=== PATIENT | male | born 1940 | race Caucasian/White ===

== ENCOUNTER 2021-06-12 16:09 | Emergency (ER) | payer OTHER, MEDICARE ==
[~2021-06-12] VITALS: Ht 175.3 cm; Wt 101.4 kg
[2021-06-12] MEDS ORDERED: albuterol 2.5 MG/3 ML nebule NEB ONE (19:20)
[2021-06-12 19:59] VITALS: BP 145/74
== END 2021-06-12 20:01 | disposition home or self-care (01) ==
LOC: ER 16:10
DX: R06.02 Shortness of breath (principal); R18.8 Other ascites; R14.0 Abdominal distension (gaseous); F17.200 Nicotine dependence, unspecified, uncomplicated
CPT/HCPCS: 94640; 94760; 99284

== ENCOUNTER 2021-07-03 07:50 | Day surgery (SDC) | payer OTHER ==
[~2021-07-03] VITALS: Ht 175.3 cm; Wt 91.7 kg
[~2021-07-03 07:50] MED LIST: AMLO5TAB PO; EMPA10TA PO; FERR-39 PO; FURO-149 PO; GABA300C PO; INSU100I25 SQ; METF-900 PO; METO-395 PO; SENN-263 PO; SPIR25TA5 PO; ZAR2.5T PO
[2021-07-03] MEDS ORDERED: LIDOcaine 1%/PF 5ML 10 MG/ML VIAL SQ ONE (08:00)
[2021-07-03] MEDS ORDERED: albumin 25% 100mL bottle x 1 IV PRN (08:10)
[2021-07-03 08:24] VITALS: BP 141/69
[2021-07-03 08:30] VITALS: BP 141/69
[2021-07-03 08:45] VITALS: BP 129/68
[2021-07-03 08:59] VITALS: BP 120/49
[2021-07-03 09:15] VITALS: BP 115/47
[2021-07-03 09:30] VITALS: BP 119/48
--- NOTE | 2021-07-03 09:35 | NUR ---
contacted stroke alert called
== END 2021-07-03 09:50 | disposition home or self-care (01) ==
LOC: SSTAY O 07:50
PROVIDERS: ATTEND Radiology Vascular & Interventional Radiology
DX: R18.8 Other ascites (principal); R14.0 Abdominal distension (gaseous); K74.60 Unspecified cirrhosis of liver; J44.9 Chronic obstructive pulmonary disease, unspecified; E11.22 Type 2 diabetes mellitus with diabetic chronic kidney disease; N18.4 Chronic kidney disease, stage 4 (severe); K72.90 Hepatic failure, unspecified without coma; E66.01 Morbid (severe) obesity due to excess calories; Z68.29 Body mass index [BMI] 29.0-29.9, adult; Z95.2 Presence of prosthetic heart valve; Z95.0 Presence of cardiac pacemaker; F17.290 Nicotine dependence, other tobacco product, uncomplicated; Z72.89 Other problems related to lifestyle; Z79.4 Long term (current) use of insulin; Z79.899 Other long term (current) drug therapy
CPT/HCPCS: 49083; J3490; P9047

== ENCOUNTER 2021-07-13 06:50 | Day surgery (SDC) | payer OTHER ==
[2021-07-13] VITALS (10 sets, daily range): BP systolic 126–139; BP diastolic 53–62
[~2021-07-13] VITALS: Ht 175.3 cm; Wt 87.7 kg
[2021-07-13] MEDS ORDERED: LIDOcaine 1%/PF 5ML 10 MG/ML VIAL SQ ONE (07:05)
[2021-07-13] MEDS ORDERED: albumin 25% 100mL bottle x 1 IV PRN (07:40)
== END 2021-07-13 11:11 | disposition home or self-care (01) ==
LOC: SSTAY O 06:50
PROVIDERS: ATTEND Radiology Vascular & Interventional Radiology
DX: R18.8 Other ascites (principal); E11.22 Type 2 diabetes mellitus with diabetic chronic kidney disease; N18.4 Chronic kidney disease, stage 4 (severe); J44.9 Chronic obstructive pulmonary disease, unspecified; E66.01 Morbid (severe) obesity due to excess calories; Z68.28 Body mass index [BMI] 28.0-28.9, adult; Z95.0 Presence of cardiac pacemaker; Z95.2 Presence of prosthetic heart valve; F17.290 Nicotine dependence, other tobacco product, uncomplicated; Z72.89 Other problems related to lifestyle; Z79.899 Other long term (current) drug therapy
CPT/HCPCS: 49083; J3490; P9047

== ENCOUNTER 2021-07-20 07:47 | Day surgery (SDC) | payer OTHER ==
[~2021-07-20] VITALS: Ht 175.3 cm; Wt 83.0 kg
[2021-07-20] VITALS (8 sets, daily range): BP systolic 115–145; BP diastolic 55–65
[~2021-07-20 07:47] MED LIST changes: -INSU100I25 SQ; -METF-900 PO; -SENN-263 PO
[2021-07-20] MEDS ORDERED: albumin 25% 100mL bottle x 1 IV PRN (08:05)
[2021-07-20] MEDS ORDERED: INSULIN ASPART SQ (08:37)
[2021-07-20] MEDS ORDERED: ALOG25TA2 PO (08:37)
[2021-07-20] MEDS ORDERED: POTA20PA40 PO (08:37)
[2021-07-20] MEDS ORDERED: RENAL MULTIVITAMIN PO (08:37)
[2021-07-20] MEDS ORDERED: LIDOcaine 1%/PF 5ML 10 MG/ML VIAL SQ ONE (08:45)
== END 2021-07-20 11:25 | disposition home or self-care (01) ==
LOC: SSTAY O 07:47
PROVIDERS: ATTEND Radiology Diagnostic Radiology
DX: R18.8 Other ascites (principal); J44.9 Chronic obstructive pulmonary disease, unspecified; E11.22 Type 2 diabetes mellitus with diabetic chronic kidney disease; N18.4 Chronic kidney disease, stage 4 (severe); Z95.0 Presence of cardiac pacemaker; Z95.2 Presence of prosthetic heart valve; E66.01 Morbid (severe) obesity due to excess calories; Z68.27 Body mass index [BMI] 27.0-27.9, adult; Z72.89 Other problems related to lifestyle; Z79.899 Other long term (current) drug therapy
CPT/HCPCS: 49083; J3490

== ENCOUNTER 2021-08-02 08:03 | Day surgery (SDC) | payer OTHER ==
[~2021-08-02] VITALS: Ht 175.3 cm; Wt 86.4 kg
[~2021-08-02 08:03] MED LIST changes: +ALOG25TA2 PO; -GABA300C PO; +INSULIN ASPART SQ; +POTA20PA40 PO; +RENAL MULTIVITAMIN PO
[2021-08-02 08:30] VITALS: BP 129/72
[2021-08-02] MEDS ORDERED: LIDOcaine 1%/PF 5ML 10 MG/ML VIAL SQ ONE (08:30)
[2021-08-02] MEDS ORDERED: albumin 25% 100mL bottle x 1 IV PRN (08:35)
[2021-08-02 09:20] VITALS: BP 118/65
[2021-08-02 09:35] VITALS: BP 137/55
[2021-08-02 09:50] VITALS: BP 133/58
[2021-08-02 10:05] VITALS: BP 131/54
== END 2021-08-02 10:15 | disposition home or self-care (01) ==
LOC: SSTAY O 08:03
PROVIDERS: ATTEND Radiology Vascular & Interventional Radiology
DX: R18.8 Other ascites (principal); R14.0 Abdominal distension (gaseous); J44.9 Chronic obstructive pulmonary disease, unspecified; E11.22 Type 2 diabetes mellitus with diabetic chronic kidney disease; N18.4 Chronic kidney disease, stage 4 (severe); K29.70 Gastritis, unspecified, without bleeding; E66.01 Morbid (severe) obesity due to excess calories; Z68.28 Body mass index [BMI] 28.0-28.9, adult; Z95.2 Presence of prosthetic heart valve; Z95.0 Presence of cardiac pacemaker; Z72.89 Other problems related to lifestyle; F17.290 Nicotine dependence, other tobacco product, uncomplicated; Z79.899 Other long term (current) drug therapy
CPT/HCPCS: 49083; J3490; Z7610; A6258

== ENCOUNTER 2021-08-13 06:34 | Day surgery (SDC) | payer OTHER ==
[2021-08-13] VITALS (7 sets, daily range): BP systolic 115–140; BP diastolic 58–67
[~2021-08-13] VITALS: Ht 175.3 cm; Wt 88.7 kg
[2021-08-13] MEDS ORDERED: albumin 25% 100mL bottle x 1 IV PRN (06:55)
[2021-08-13] MEDS ORDERED: LIDOcaine 1% 30ml preserv. free vial SQ STA (07:11)
== END 2021-08-13 10:15 | disposition home or self-care (01) ==
LOC: SSTAY O 06:34
PROVIDERS: ATTEND Radiology Diagnostic Radiology
DX: R18.8 Other ascites (principal); R14.0 Abdominal distension (gaseous); K74.60 Unspecified cirrhosis of liver; J44.9 Chronic obstructive pulmonary disease, unspecified; E66.01 Morbid (severe) obesity due to excess calories; Z68.28 Body mass index [BMI] 28.0-28.9, adult; E11.22 Type 2 diabetes mellitus with diabetic chronic kidney disease; N18.4 Chronic kidney disease, stage 4 (severe); Z95.0 Presence of cardiac pacemaker; Z95.2 Presence of prosthetic heart valve; Z79.4 Long term (current) use of insulin; Z79.899 Other long term (current) drug therapy; F17.290 Nicotine dependence, other tobacco product, uncomplicated; Z72.89 Other problems related to lifestyle
CPT/HCPCS: 49083; P9047; Z7610; A6258

== ENCOUNTER 2021-08-21 07:38 | Day surgery (SDC) | payer OTHER ==
[~2021-08-21] VITALS: Ht 175.3 cm; Wt 89.0 kg
[2021-08-21] MEDS ORDERED: LIDOcaine 1%/PF 5ML 10 MG/ML VIAL SQ ONE (07:45)
[2021-08-21] MEDS ORDERED: albumin 25% 100mL bottle x 1 IV PRN (08:05)
[2021-08-21 08:30] VITALS: BP 139/62
[2021-08-21 08:58] VITALS: BP 129/49
[2021-08-21 09:13] VITALS: BP 109/52
[2021-08-21 09:28] VITALS: BP 108/53
[2021-08-21 09:43] VITALS: BP 118/43
[2021-08-21 09:58] VITALS: BP 112/51
== END 2021-08-21 10:05 | disposition home or self-care (01) ==
LOC: SSTAY O 07:38
PROVIDERS: ATTEND Radiology Diagnostic Radiology
DX: R18.8 Other ascites (principal); R14.0 Abdominal distension (gaseous); J44.9 Chronic obstructive pulmonary disease, unspecified; E11.22 Type 2 diabetes mellitus with diabetic chronic kidney disease; N18.4 Chronic kidney disease, stage 4 (severe); K72.90 Hepatic failure, unspecified without coma; E66.01 Morbid (severe) obesity due to excess calories; Z68.29 Body mass index [BMI] 29.0-29.9, adult; Z95.2 Presence of prosthetic heart valve; Z95.0 Presence of cardiac pacemaker; F17.290 Nicotine dependence, other tobacco product, uncomplicated; Z72.89 Other problems related to lifestyle; Z79.4 Long term (current) use of insulin; Z79.899 Other long term (current) drug therapy
CPT/HCPCS: 49083; J3490; P9047; Z7610; A6258; A6449

== ENCOUNTER 2021-08-29 06:27 | Day surgery (SDC) | payer OTHER ==
[~2021-08-29] VITALS: Ht 175.3 cm; Wt 91.0 kg
[2021-08-29] VITALS (8 sets, daily range): BP systolic 126–147; BP diastolic 52–77
[~2021-08-29 06:27] MED LIST changes: -EMPA10TA PO
[2021-08-29] MEDS ORDERED: albumin 25% 100mL bottle x 1 IV PRN (07:00)
[2021-08-29] MEDS ORDERED: LIDOcaine 1%/PF 5ML 10 MG/ML VIAL SQ ONE (07:05)
== END 2021-08-29 10:30 | disposition home or self-care (01) ==
LOC: SSTAY O 06:27
PROVIDERS: ATTEND Radiology Vascular & Interventional Radiology
DX: R18.8 Other ascites (principal); K74.60 Unspecified cirrhosis of liver; E11.22 Type 2 diabetes mellitus with diabetic chronic kidney disease; N18.4 Chronic kidney disease, stage 4 (severe); J44.9 Chronic obstructive pulmonary disease, unspecified; E66.01 Morbid (severe) obesity due to excess calories; Z68.29 Body mass index [BMI] 29.0-29.9, adult; Z95.0 Presence of cardiac pacemaker; Z95.2 Presence of prosthetic heart valve; Z72.89 Other problems related to lifestyle; F17.290 Nicotine dependence, other tobacco product, uncomplicated; Z79.4 Long term (current) use of insulin; Z79.899 Other long term (current) drug therapy
CPT/HCPCS: 49083; J3490; P9047; A6258; A6449

== ENCOUNTER 2021-09-06 07:44 | Day surgery (SDC) | payer OTHER ==
[~2021-09-06] VITALS: Ht 175.3 cm; Wt 90.9 kg
[2021-09-06] VITALS (7 sets, daily range): BP systolic 106–140; BP diastolic 51–75
[2021-09-06] MEDS ORDERED: albumin 25% 100mL bottle x 1 IV PRN (08:00)
[2021-09-06] MEDS ORDERED: INSU100V12 SQ (08:13)
[2021-09-06] MEDS ORDERED: INSU100V37 SQ ×2 (08:13)
[2021-09-06] MEDS ORDERED: ATOR10TA87 PO (08:13)
[2021-09-06] MEDS ORDERED: LIDOcaine 1%/PF 5ML 10 MG/ML VIAL SQ ONE ×2 (08:20→10:30)
== END 2021-09-06 11:55 | disposition home or self-care (01) ==
LOC: SSTAY O 07:44
PROVIDERS: ATTEND Radiology Diagnostic Radiology
DX: R18.8 Other ascites (principal); K74.60 Unspecified cirrhosis of liver; J44.9 Chronic obstructive pulmonary disease, unspecified; E11.22 Type 2 diabetes mellitus with diabetic chronic kidney disease; N18.4 Chronic kidney disease, stage 4 (severe); E66.01 Morbid (severe) obesity due to excess calories; Z95.0 Presence of cardiac pacemaker; Z95.2 Presence of prosthetic heart valve; Z86.19 Personal history of other infectious and parasitic diseases; Z79.899 Other long term (current) drug therapy; Z98.890 Other specified postprocedural states
CPT/HCPCS: 49083; J3490; P9047; Z7610; A6258

== ENCOUNTER 2021-09-20 06:08 | Day surgery (SDC) | payer OTHER ==
[~2021-09-20] VITALS: Ht 175.3 cm; Wt 88.9 kg
[2021-09-20] VITALS (7 sets, daily range): BP systolic 106–135; BP diastolic 53–79
[~2021-09-20 06:08] MED LIST changes: +ATOR10TA87 PO; +INSU100V37 SQ; -INSULIN ASPART SQ
[2021-09-20] MEDS: LIDOcaine 1%/PF 5ML 10 MG/ML VIAL IJ ONE (08:42)
[2021-09-20] MEDS: albumin 25% 100mL bottle x 1 IV PRN (08:42)
== END 2021-09-20 09:50 | disposition home or self-care (01) ==
LOC: SSTAY O 06:08
PROVIDERS: ATTEND Radiology Vascular & Interventional Radiology
DX: R18.8 Other ascites (principal); K74.60 Unspecified cirrhosis of liver; J44.9 Chronic obstructive pulmonary disease, unspecified; E66.01 Morbid (severe) obesity due to excess calories; E11.22 Type 2 diabetes mellitus with diabetic chronic kidney disease; F17.210 Nicotine dependence, cigarettes, uncomplicated; N18.4 Chronic kidney disease, stage 4 (severe); Z95.0 Presence of cardiac pacemaker; Z95.4 Presence of other heart-valve replacement; Z79.4 Long term (current) use of insulin; Z79.899 Other long term (current) drug therapy; Z98.890 Other specified postprocedural states
CPT/HCPCS: 49083; J3490; P9047; A6258

== ENCOUNTER 2021-10-02 06:10 | Day surgery (SDC) | payer OTHER ==
[2021-10-02] VITALS (7 sets, daily range): BP systolic 123–147; BP diastolic 43–64
[~2021-10-02] VITALS: Ht 175.3 cm; Wt 91.8 kg
[2021-10-02] MEDS ORDERED: albumin 25% 100mL bottle x 1 IV PRN (06:55)
[2021-10-02] MEDS ORDERED: INSU100I25 SQ (07:06)
[2021-10-02] MEDS ORDERED: EMPA25TA PO (07:06)
[2021-10-02] MEDS ORDERED: PRED20TA PO (07:06)
[2021-10-02] MEDS ORDERED: ALOG12.52 PO (07:06)
[2021-10-02] MEDS ORDERED: LISI20TA28 PO (07:09)
[2021-10-02] MEDS ORDERED: FURO-150 PO (07:10)
[2021-10-02] MEDS ORDERED: ATOR40TA PO (07:11)
[2021-10-02] MEDS ORDERED: [UNRECOGNIZED DRUG - CODE] PO (07:13)
[2021-10-02] MEDS ORDERED: LIDOcaine 1% 30ml preserv. free vial SQ STA (07:45)
== END 2021-10-02 10:05 | disposition home or self-care (01) ==
LOC: SSTAY O 06:10
PROVIDERS: ATTEND Preventive Medicine Aerospace Medicine
DX: R18.8 Other ascites (principal); Z79.899 Other long term (current) drug therapy; Z79.4 Long term (current) use of insulin; Z98.890 Other specified postprocedural states
CPT/HCPCS: 49083; J3490; J7030; P9047; A6258; A6449

== ENCOUNTER 2021-10-12 08:28 | Day surgery (SDC) | payer OTHER ==
[2021-10-12] VITALS (8 sets, daily range): BP systolic 122–135; BP diastolic 52–63
[~2021-10-12] VITALS: Ht 175.3 cm; Wt 89.1 kg
[~2021-10-12 08:28] MED LIST changes: +ALOG12.52 PO; -ALOG25TA2 PO; -ATOR10TA87 PO; +ATOR40TA PO; +EMPA25TA PO; +FURO-150 PO; +INSU100I25 SQ; -INSU100V37 SQ; +LISI20TA28 PO; -POTA20PA40 PO; +PRED20TA PO; +[UNRECOGNIZED DRUG - CODE] PO
[2021-10-12] MEDS ORDERED: albumin 25% 100mL bottle x 1 IV PRN (08:50)
[2021-10-12] MEDS ORDERED: LIDOcaine 1%/PF 5ML 10 MG/ML VIAL SQ ONE (08:55)
== END 2021-10-12 11:40 | disposition home or self-care (01) ==
LOC: SSTAY O 08:28
PROVIDERS: ATTEND Radiology Diagnostic Radiology
DX: R18.8 Other ascites (principal); J44.9 Chronic obstructive pulmonary disease, unspecified; E11.22 Type 2 diabetes mellitus with diabetic chronic kidney disease; Z79.899 Other long term (current) drug therapy; Z79.4 Long term (current) use of insulin; E66.01 Morbid (severe) obesity due to excess calories; N18.4 Chronic kidney disease, stage 4 (severe); Z95.0 Presence of cardiac pacemaker; Z95.4 Presence of other heart-valve replacement; Z98.890 Other specified postprocedural states
CPT/HCPCS: 49083; J3490; P9047; A6258; A6449

== ENCOUNTER 2021-10-19 07:42 | Day surgery (SDC) | payer OTHER ==
[~2021-10-19] VITALS: Ht 175.3 cm; Wt 90.3 kg
[2021-10-19] VITALS (9 sets, daily range): BP systolic 121–157; BP diastolic 51–65
[2021-10-19] MEDS ORDERED: albumin 25% 100mL bottle x 1 IV PRN (08:00)
[2021-10-19] MEDS ORDERED: LIDOcaine 1%/PF 5ML 10 MG/ML VIAL SQ ONE (08:10)
[2021-10-19] MEDS ORDERED: dextrose 50%-water 50ml dispensing syringe IV ONE (08:11)
== END 2021-10-19 11:00 | disposition home or self-care (01) ==
LOC: SSTAY O 07:42
PROVIDERS: ATTEND Preventive Medicine Aerospace Medicine
DX: R18.8 Other ascites (principal); K74.60 Unspecified cirrhosis of liver; J44.9 Chronic obstructive pulmonary disease, unspecified; E11.22 Type 2 diabetes mellitus with diabetic chronic kidney disease; E66.01 Morbid (severe) obesity due to excess calories; N18.4 Chronic kidney disease, stage 4 (severe); Z95.0 Presence of cardiac pacemaker; Z95.4 Presence of other heart-valve replacement; Z79.899 Other long term (current) drug therapy; Z98.890 Other specified postprocedural states
CPT/HCPCS: 49083; 82948; J3490; P9047; A6258; A6449

== ENCOUNTER 2021-10-26 06:56 | Day surgery (SDC) | payer OTHER ==
[2021-10-26] VITALS (9 sets, daily range): BP systolic 117–145; BP diastolic 50–59
[~2021-10-26] VITALS: Ht 175.3 cm; Wt 95.1 kg
[2021-10-26] MEDS ORDERED: albumin 25% 100mL bottle x 1 IV PRN (07:15)
[2021-10-26] MEDS ORDERED: LIDOcaine 1%/PF 5ML 10 MG/ML VIAL SQ ONE (08:20)
== END 2021-10-26 11:00 | disposition home or self-care (01) ==
LOC: SSTAY O 06:56
PROVIDERS: ATTEND Radiology Vascular & Interventional Radiology
DX: R18.8 Other ascites (principal); K74.60 Unspecified cirrhosis of liver; J44.9 Chronic obstructive pulmonary disease, unspecified; E66.01 Morbid (severe) obesity due to excess calories; E11.22 Type 2 diabetes mellitus with diabetic chronic kidney disease; N18.4 Chronic kidney disease, stage 4 (severe); Z95.4 Presence of other heart-valve replacement; Z95.0 Presence of cardiac pacemaker; Z79.899 Other long term (current) drug therapy; Z98.890 Other specified postprocedural states
CPT/HCPCS: 49083; J3490; P9047; A6258; A6449

== ENCOUNTER 2021-11-05 07:59 | Day surgery (SDC) | payer OTHER ==
[~2021-11-05] VITALS: Ht 175.3 cm; Wt 100.5 kg
[2021-11-05] VITALS (9 sets, daily range): BP systolic 104–138; BP diastolic 46–68
[~2021-11-05 07:59] MED LIST changes: -PRED20TA PO
[2021-11-05] MEDS ORDERED: LIDOcaine 1%/PF 5ML 10 MG/ML VIAL SQ ONE (08:10)
[2021-11-05] MEDS: albumin 25% 100mL bottle x 1 IV PRN ×2 (09:03→09:58)
== END 2021-11-05 11:15 | disposition home or self-care (01) ==
LOC: SSTAY O 07:59
PROVIDERS: ATTEND Radiology Diagnostic Radiology
DX: R18.8 Other ascites (principal); K74.60 Unspecified cirrhosis of liver; J44.9 Chronic obstructive pulmonary disease, unspecified; E11.22 Type 2 diabetes mellitus with diabetic chronic kidney disease; N18.4 Chronic kidney disease, stage 4 (severe); E66.01 Morbid (severe) obesity due to excess calories; Z95.0 Presence of cardiac pacemaker; Z95.4 Presence of other heart-valve replacement; Z79.899 Other long term (current) drug therapy
CPT/HCPCS: 49083; J3490; P9047; A6258; A6449

== ENCOUNTER 2021-11-19 07:05 | Day surgery (SDC) | payer OTHER ==
[2021-11-19] VITALS (8 sets, daily range): BP systolic 109–141; BP diastolic 47–64
[~2021-11-19] VITALS: Ht 175.3 cm; Wt 98.5 kg
[~2021-11-19 07:05] MED LIST changes: +LIDOcaine 1% 30ml preserv. free vial SQ STA
[2021-11-19] MEDS: albumin 25% 100mL bottle x 1 IV PRN ×2 (07:29→07:30)
== END 2021-11-19 11:05 | disposition home or self-care (01) ==
LOC: SSTAY O 07:05
PROVIDERS: ATTEND Radiology Vascular & Interventional Radiology
DX: R18.8 Other ascites (principal); K74.60 Unspecified cirrhosis of liver; J44.9 Chronic obstructive pulmonary disease, unspecified; E11.22 Type 2 diabetes mellitus with diabetic chronic kidney disease; N18.4 Chronic kidney disease, stage 4 (severe); Z79.899 Other long term (current) drug therapy; Z98.890 Other specified postprocedural states; E66.01 Morbid (severe) obesity due to excess calories; Z95.0 Presence of cardiac pacemaker
CPT/HCPCS: 49083; J3490; P9047; A6258

== ENCOUNTER 2021-11-26 06:57 | Day surgery (SDC) | payer OTHER ==
[2021-11-26] VITALS (9 sets, daily range): BP systolic 122–140; BP diastolic 48–77
[~2021-11-26] VITALS: Ht 175.3 cm; Wt 100.2 kg
[~2021-11-26 06:57] MED LIST changes: -LIDOcaine 1% 30ml preserv. free vial SQ STA
[2021-11-26] MEDS ORDERED: LIDOcaine 1% 30ml preserv. free vial SQ STA (07:45)
[2021-11-26] MEDS: albumin 25% 100mL bottle x 1 IV PRN ×2 (08:08→08:09)
== END 2021-11-26 10:35 | disposition home or self-care (01) ==
LOC: SSTAY O 06:57
PROVIDERS: ATTEND Radiology Diagnostic Radiology
DX: R18.8 Other ascites (principal); J44.9 Chronic obstructive pulmonary disease, unspecified; E11.22 Type 2 diabetes mellitus with diabetic chronic kidney disease; E66.01 Morbid (severe) obesity due to excess calories; N18.4 Chronic kidney disease, stage 4 (severe); Z79.899 Other long term (current) drug therapy; Z95.0 Presence of cardiac pacemaker; Z98.890 Other specified postprocedural states; Z95.4 Presence of other heart-valve replacement
CPT/HCPCS: 49083; J3490; P9047; A6258

== ENCOUNTER 2021-12-03 07:34 | Day surgery (SDC) | payer OTHER ==
[2021-12-03] VITALS (8 sets, daily range): BP systolic 131–160; BP diastolic 51–64
[~2021-12-03] VITALS: Ht 175.3 cm; Wt 98.0 kg
[~2021-12-03 07:34] MED LIST changes: -FURO-150 PO; -[UNRECOGNIZED DRUG - CODE] PO
[2021-12-03] MEDS: albumin 25% 100mL bottle x 1 IV PRN ×2 (09:21→09:56)
== END 2021-12-03 11:15 | disposition home or self-care (01) ==
LOC: SSTAY O 07:34
PROVIDERS: ATTEND Radiology Vascular & Interventional Radiology
DX: R18.8 Other ascites (principal); J44.9 Chronic obstructive pulmonary disease, unspecified; E11.22 Type 2 diabetes mellitus with diabetic chronic kidney disease; E66.01 Morbid (severe) obesity due to excess calories; Z79.899 Other long term (current) drug therapy; Z95.0 Presence of cardiac pacemaker; Z98.890 Other specified postprocedural states; Z95.4 Presence of other heart-valve replacement
CPT/HCPCS: 49083; P9047; A6258; A6449

== ENCOUNTER 2021-12-10 07:29 | Day surgery (SDC) | payer OTHER ==
[2021-12-10] VITALS (11 sets, daily range): BP systolic 110–147; BP diastolic 47–71
[~2021-12-10] VITALS: Ht 175.3 cm; Wt 97.5 kg
[2021-12-10] MEDS: albumin 25% 100mL bottle x 1 IV PRN ×2 (09:13→09:53)
== END 2021-12-10 10:55 | disposition home or self-care (01) ==
LOC: SSTAY O 07:29
PROVIDERS: ATTEND Radiology Vascular & Interventional Radiology
DX: R18.8 Other ascites (principal); J44.9 Chronic obstructive pulmonary disease, unspecified; E11.22 Type 2 diabetes mellitus with diabetic chronic kidney disease; N18.4 Chronic kidney disease, stage 4 (severe); E66.01 Morbid (severe) obesity due to excess calories; Z95.0 Presence of cardiac pacemaker; Z98.890 Other specified postprocedural states; Z79.899 Other long term (current) drug therapy; Z95.4 Presence of other heart-valve replacement
CPT/HCPCS: 49083; C1729; P9047; A6258; A6449

== ENCOUNTER 2021-12-17 07:29 | Day surgery (SDC) | payer OTHER ==
[2021-12-17] VITALS (8 sets, daily range): BP systolic 119–158; BP diastolic 51–76
[~2021-12-17] VITALS: Ht 175.3 cm; Wt 100.0 kg
[2021-12-17] MEDS: albumin 25% 100mL bottle x 1 IV PRN ×2 (09:23→09:27)
[2021-12-17] MEDS ORDERED: albuterol 2.5 MG/3 ML nebule NEB ONE (09:35)
== END 2021-12-17 11:45 | disposition home or self-care (01) ==
LOC: SSTAY O 07:29
PROVIDERS: ATTEND Radiology Vascular & Interventional Radiology
DX: R18.8 Other ascites (principal); K74.60 Unspecified cirrhosis of liver; J44.9 Chronic obstructive pulmonary disease, unspecified; E11.22 Type 2 diabetes mellitus with diabetic chronic kidney disease; N18.4 Chronic kidney disease, stage 4 (severe); E66.01 Morbid (severe) obesity due to excess calories; Z72.89 Other problems related to lifestyle; Z95.0 Presence of cardiac pacemaker; Z95.4 Presence of other heart-valve replacement
CPT/HCPCS: 49083; 94640; 94760; P9047; A6258; A6449

== ENCOUNTER 2021-12-24 06:57 | Day surgery (SDC) | payer OTHER ==
[2021-12-24] VITALS (8 sets, daily range): BP systolic 110–158; BP diastolic 55–75
[~2021-12-24] VITALS: Ht 175.3 cm; Wt 99.6 kg
[2021-12-24] MEDS ORDERED: LIDOcaine 1% 30ml preserv. free vial SQ STA (07:13)
[2021-12-24] MEDS ORDERED: INSU100I25 SQ (07:18)
--- NOTE | 2021-12-24 08:53 | NUR ---
Patient's blood sugar 39. Notified Ene GOLDBERG Will administer 50% dextrose IV and reassess in 15 minutes. Patient a/o x 4, denies any symptoms.
[2021-12-24] MEDS ORDERED: dextrose 50%-water 50ml dispensing syringe IV ONE (08:54)
[2021-12-24] MEDS: albumin 25% 100mL bottle x 1 IV PRN ×2 (09:07→09:46)
--- NOTE | 2021-12-24 09:10 | NUR ---
Blood glucose 158. Patient a/o x 4 and tolerating PO intake.
--- NOTE | 2021-12-24 10:35 | NUR ---
Blood glucose 100. Notified NATALIE Bartlett.
== END 2021-12-24 10:40 | disposition home or self-care (01) ==
LOC: SSTAY O 06:57
PROVIDERS: ATTEND Radiology Vascular & Interventional Radiology
DX: R18.8 Other ascites (principal); J44.9 Chronic obstructive pulmonary disease, unspecified; E11.22 Type 2 diabetes mellitus with diabetic chronic kidney disease; E66.01 Morbid (severe) obesity due to excess calories; Z95.0 Presence of cardiac pacemaker; Z95.2 Presence of prosthetic heart valve; Z79.899 Other long term (current) drug therapy; Z98.890 Other specified postprocedural states
CPT/HCPCS: 49083; 82948; J3490; P9047; A6258; A6449

== ENCOUNTER 2021-12-31 07:08 | Day surgery (SDC) | payer OTHER ==
[~2021-12-31] VITALS: Ht 175.3 cm; Wt 100.0 kg
[2021-12-31] VITALS (12 sets, daily range): BP systolic 117–146; BP diastolic 50–68
[~2021-12-31 07:08] MED LIST changes: +LIDOcaine 1% 30ml preserv. free vial SQ STA
--- NOTE | 2021-12-31 07:45 | NUR ---
VENOUS BLOOD GLUCOSE 146
[2021-12-31] MEDS: albumin 25% 100mL bottle x 1 IV PRN ×2 (09:00→09:50)
== END 2021-12-31 11:15 | disposition home or self-care (01) ==
LOC: SSTAY O 07:08
PROVIDERS: ATTEND Radiology Vascular & Interventional Radiology
DX: R18.8 Other ascites (principal); K74.60 Unspecified cirrhosis of liver; E66.01 Morbid (severe) obesity due to excess calories; E11.22 Type 2 diabetes mellitus with diabetic chronic kidney disease; N18.4 Chronic kidney disease, stage 4 (severe); Z95.0 Presence of cardiac pacemaker; Z72.89 Other problems related to lifestyle; Z79.899 Other long term (current) drug therapy; Z79.4 Long term (current) use of insulin; Z95.4 Presence of other heart-valve replacement
CPT/HCPCS: 49083; 82948; J3490; P9047; A6258; A6449

== ENCOUNTER 2022-01-07 06:55 | Day surgery (SDC) | payer OTHER ==
[2022-01-07] VITALS (11 sets, daily range): BP systolic 118–144; BP diastolic 53–86
[~2022-01-07] VITALS: Ht 175.3 cm; Wt 100.7 kg
[~2022-01-07 06:55] MED LIST changes: -LIDOcaine 1% 30ml preserv. free vial SQ STA
[2022-01-07] MEDS ORDERED: CHOL400T32 PO (07:14)
[2022-01-07] MEDS ORDERED: VITA400T10 PO (07:14)
[2022-01-07] MEDS ORDERED: ASPI81TA52 PO (07:14)
[2022-01-07] MEDS ORDERED: FURO-149 PO ×2 (07:14)
[2022-01-07] MEDS ORDERED: LIDOcaine 1% 30ml preserv. free vial SQ STA (07:35)
[2022-01-07] MEDS: albumin 25% 100mL bottle x 1 IV PRN ×2 (08:29→09:29)
== END 2022-01-07 10:40 | disposition home or self-care (01) ==
LOC: SSTAY O 06:55
PROVIDERS: ATTEND Radiology Vascular & Interventional Radiology
DX: R18.8 Other ascites (principal); J44.9 Chronic obstructive pulmonary disease, unspecified; K74.60 Unspecified cirrhosis of liver; E11.22 Type 2 diabetes mellitus with diabetic chronic kidney disease; N18.4 Chronic kidney disease, stage 4 (severe); E66.01 Morbid (severe) obesity due to excess calories; Z98.890 Other specified postprocedural states; Z95.0 Presence of cardiac pacemaker; Z79.899 Other long term (current) drug therapy; Z72.89 Other problems related to lifestyle; Z95.2 Presence of prosthetic heart valve
CPT/HCPCS: 49083; 82948; J3490; P9047; A6258; A6402

== ENCOUNTER 2022-01-14 07:00 | Day surgery (SDC) | payer OTHER ==
[2022-01-14] VITALS (9 sets, daily range): BP systolic 92–149; BP diastolic 52–80
[~2022-01-14] VITALS: Ht 175.3 cm; Wt 98.7 kg
[~2022-01-14 07:00] MED LIST changes: +ASPI81TA52 PO; +CHOL400T32 PO; +VITA400T10 PO
[2022-01-14] MEDS ORDERED: LIDOcaine 1% 30ml preserv. free vial SQ STA (07:13)
[2022-01-14] MEDS ORDERED: albuterol 2.5 MG/3 ML nebule NEB PRN (08:15)
[2022-01-14] MEDS: albumin 25% 100mL bottle x 1 IV PRN ×2 (09:15→09:16)
== END 2022-01-14 10:25 | disposition home or self-care (01) ==
LOC: SSTAY O 07:00
PROVIDERS: ATTEND Radiology Vascular & Interventional Radiology
DX: R18.8 Other ascites (principal); K74.60 Unspecified cirrhosis of liver; J44.9 Chronic obstructive pulmonary disease, unspecified; E11.22 Type 2 diabetes mellitus with diabetic chronic kidney disease; N18.4 Chronic kidney disease, stage 4 (severe); E66.01 Morbid (severe) obesity due to excess calories; Z79.899 Other long term (current) drug therapy; Z95.0 Presence of cardiac pacemaker; Z95.4 Presence of other heart-valve replacement; Z98.890 Other specified postprocedural states
CPT/HCPCS: 49083; 82948; 94640; J3490; P9047; A6258; A6449

== ENCOUNTER 2022-01-21 06:57 | Day surgery (SDC) | payer OTHER ==
[~2022-01-21] VITALS: Ht 175.3 cm; Wt 100.1 kg
[2022-01-21] VITALS (10 sets, daily range): BP systolic 118–153; BP diastolic 59–97
[2022-01-21] MEDS: albumin 25% 100mL bottle x 1 IV PRN ×2 (07:44→07:45)
[2022-01-21] MEDS ORDERED: LIDOcaine 1% 30ml preserv. free vial SQ STA (08:04)
== END 2022-01-21 10:30 | disposition home or self-care (01) ==
LOC: SSTAY O 06:57
PROVIDERS: ATTEND Radiology Diagnostic Radiology
DX: R18.8 Other ascites (principal); K74.60 Unspecified cirrhosis of liver; E11.22 Type 2 diabetes mellitus with diabetic chronic kidney disease; N18.4 Chronic kidney disease, stage 4 (severe); J44.9 Chronic obstructive pulmonary disease, unspecified; E66.01 Morbid (severe) obesity due to excess calories; F17.210 Nicotine dependence, cigarettes, uncomplicated; F10.10 Alcohol abuse, uncomplicated; Z68.32 Body mass index [BMI] 32.0-32.9, adult; Z95.0 Presence of cardiac pacemaker; Z95.2 Presence of prosthetic heart valve; Z79.82 Long term (current) use of aspirin; Z79.4 Long term (current) use of insulin; Z79.84 Long term (current) use of oral hypoglycemic drugs; Z79.899 Other long term (current) drug therapy
CPT/HCPCS: 49083; 82948; J3490; P9047; A6258

== ENCOUNTER 2022-01-28 07:55 | Day surgery (SDC) | payer OTHER ==
[~2022-01-28] VITALS: Ht 175.3 cm; Wt 97.1 kg
[2022-01-28] VITALS (10 sets, daily range): BP systolic 111–147; BP diastolic 42–77
[~2022-01-28 07:55] MED LIST changes: -AMLO5TAB PO; -METO-395 PO; -ZAR2.5T PO
[2022-01-28] MEDS ORDERED: normal saline 1000ml 1,000 ML IV PRN (08:10)
[2022-01-28] MEDS ORDERED: LIDOcaine 1% 30ml preserv. free vial IJ STA (08:11)
[2022-01-28] MEDS: albumin 25% 100mL bottle x 1 IV PRN ×2 (10:44→10:46)
== END 2022-01-28 11:43 | disposition home or self-care (01) ==
LOC: SSTAY O 07:55
PROVIDERS: ATTEND Radiology Vascular & Interventional Radiology
DX: R18.8 Other ascites (principal); J44.9 Chronic obstructive pulmonary disease, unspecified; E11.22 Type 2 diabetes mellitus with diabetic chronic kidney disease; N18.4 Chronic kidney disease, stage 4 (severe); Z95.0 Presence of cardiac pacemaker; Z95.4 Presence of other heart-valve replacement; Z79.899 Other long term (current) drug therapy
CPT/HCPCS: 49083; 82948; J3490; P9047; A6258

== ENCOUNTER 2022-02-04 08:02 | Day surgery (SDC) | payer OTHER ==
[~2022-02-04] VITALS: Ht 175.3 cm; Wt 96.9 kg
[2022-02-04] VITALS (9 sets, daily range): BP systolic 111–160; BP diastolic 55–73
[2022-02-04] MEDS ORDERED: LIDOcaine 1% 30ml preserv. free vial SQ STA (08:36)
[2022-02-04] MEDS: albumin 25% 100mL bottle x 1 IV PRN ×2 (09:08→09:40)
== END 2022-02-04 11:00 | disposition home or self-care (01) ==
LOC: SSTAY O 08:02
PROVIDERS: ATTEND Radiology Vascular & Interventional Radiology
DX: R18.8 Other ascites (principal); K74.60 Unspecified cirrhosis of liver; Z79.899 Other long term (current) drug therapy; J44.9 Chronic obstructive pulmonary disease, unspecified; E11.22 Type 2 diabetes mellitus with diabetic chronic kidney disease; N18.4 Chronic kidney disease, stage 4 (severe); E66.01 Morbid (severe) obesity due to excess calories; Z95.0 Presence of cardiac pacemaker; Z79.4 Long term (current) use of insulin; Z98.890 Other specified postprocedural states; Z95.4 Presence of other heart-valve replacement; Z79.82 Long term (current) use of aspirin
CPT/HCPCS: 49083; 82948; J3490; P9047; A6258

== ENCOUNTER 2022-02-11 08:00 | Day surgery (SDC) | payer OTHER ==
[2022-02-11] VITALS (8 sets, daily range): BP systolic 121–147; BP diastolic 54–68
[~2022-02-11] VITALS: Ht 175.3 cm; Wt 96.5 kg
[2022-02-11] MEDS ORDERED: LIDOcaine 1% 30ml preserv. free vial SQ STA (08:13)
[2022-02-11] MEDS: albumin 25% 100mL bottle x 1 IV PRN ×2 (09:06→09:07)
== END 2022-02-11 11:10 | disposition home or self-care (01) ==
LOC: SSTAY O 08:00
PROVIDERS: ATTEND Radiology Vascular & Interventional Radiology
DX: R18.8 Other ascites (principal); J44.9 Chronic obstructive pulmonary disease, unspecified; E11.22 Type 2 diabetes mellitus with diabetic chronic kidney disease; N18.4 Chronic kidney disease, stage 4 (severe); K74.60 Unspecified cirrhosis of liver; Z95.0 Presence of cardiac pacemaker; Z95.2 Presence of prosthetic heart valve; Z79.899 Other long term (current) drug therapy
CPT/HCPCS: 49083; 82948; J3490; P9047; A6258

== ENCOUNTER 2022-02-19 07:49 | Day surgery (SDC) | payer OTHER ==
[2022-02-19] VITALS (8 sets, daily range): BP systolic 119–141; BP diastolic 55–65
[~2022-02-19] VITALS: Ht 175.3 cm; Wt 96.8 kg
[2022-02-19] MEDS ORDERED: LIDOcaine 1% 30ml preserv. free vial SQ STA (09:18)
[2022-02-19] MEDS: albumin 25% 100mL bottle x 1 IV PRN ×2 (10:06→10:35)
== END 2022-02-19 12:00 | disposition home or self-care (01) ==
LOC: SSTAY O 07:49
PROVIDERS: ATTEND Radiology Diagnostic Radiology
DX: R18.8 Other ascites (principal); K74.60 Unspecified cirrhosis of liver; J44.9 Chronic obstructive pulmonary disease, unspecified; E11.22 Type 2 diabetes mellitus with diabetic chronic kidney disease; N18.4 Chronic kidney disease, stage 4 (severe); E66.01 Morbid (severe) obesity due to excess calories; Z95.0 Presence of cardiac pacemaker; Z72.89 Other problems related to lifestyle; Z79.899 Other long term (current) drug therapy; Z95.4 Presence of other heart-valve replacement
CPT/HCPCS: 49083; 82948; J3490; P9047; A6258

== ENCOUNTER 2022-02-26 08:02 | Day surgery (SDC) | payer OTHER ==
[~2022-02-26] VITALS: Ht 175.3 cm; Wt 96.5 kg
[2022-02-26] MEDS ORDERED: LIDOcaine 1% 30ml preserv. free vial SQ STA (08:20)
[2022-02-26 08:25] VITALS: BP 134/67
[2022-02-26 08:35] VITALS: BP 130/67
[2022-02-26 08:50] VITALS: BP 134/69
[2022-02-26] MEDS ORDERED: albumin 25% 100mL bottle x 1 IV PRN (08:55)
[2022-02-26 09:05] VITALS: BP 130/62
[2022-02-26 09:20] VITALS: BP 123/64
[2022-02-26 09:35] VITALS: BP 129/48
== END 2022-02-26 09:55 | disposition home or self-care (01) ==
LOC: SSTAY O 08:02
PROVIDERS: ATTEND Radiology Vascular & Interventional Radiology
DX: R18.8 Other ascites (principal); K74.60 Unspecified cirrhosis of liver; J44.9 Chronic obstructive pulmonary disease, unspecified; E11.22 Type 2 diabetes mellitus with diabetic chronic kidney disease; N18.4 Chronic kidney disease, stage 4 (severe); E66.01 Morbid (severe) obesity due to excess calories; Z95.0 Presence of cardiac pacemaker; F17.210 Nicotine dependence, cigarettes, uncomplicated; Z72.89 Other problems related to lifestyle; Z95.4 Presence of other heart-valve replacement; Z79.82 Long term (current) use of aspirin; Z79.4 Long term (current) use of insulin; Z79.899 Other long term (current) drug therapy; Z98.890 Other specified postprocedural states
CPT/HCPCS: 49083; 82948; J3490; P9047; A6258; A6402

== ENCOUNTER 2022-03-04 08:33 | Day surgery (SDC) | payer OTHER ==
[~2022-03-04] VITALS: Ht 175.3 cm; Wt 98.2 kg
[2022-03-04] VITALS (10 sets, daily range): BP systolic 116–141; BP diastolic 53–138
[2022-03-04] MEDS ORDERED: LIDOcaine 1% 30ml preserv. free vial SQ STA (08:50)
[2022-03-04] MEDS ORDERED: normal saline 1000ml 1,000 ML IV PRN (08:50)
[2022-03-04] MEDS ORDERED: albumin (human) 25% 100 ML IV solution IV ONE (09:10)
[2022-03-04] MEDS ORDERED: albumin (human) 25% 100 ML IV solution IV PRN (10:45)
== END 2022-03-04 11:50 | disposition home or self-care (01) ==
LOC: SSTAY O 08:33
PROVIDERS: ATTEND Radiology Vascular & Interventional Radiology
DX: R18.8 Other ascites (principal); R14.0 Abdominal distension (gaseous); J44.9 Chronic obstructive pulmonary disease, unspecified; E11.22 Type 2 diabetes mellitus with diabetic chronic kidney disease; N18.4 Chronic kidney disease, stage 4 (severe); F17.290 Nicotine dependence, other tobacco product, uncomplicated; E66.01 Morbid (severe) obesity due to excess calories; Z68.32 Body mass index [BMI] 32.0-32.9, adult; Z95.0 Presence of cardiac pacemaker; Z95.2 Presence of prosthetic heart valve; Z79.899 Other long term (current) drug therapy
CPT/HCPCS: 49083; 82948; J3490; P9047; A6258; A6449

== ENCOUNTER 2022-03-11 07:05 | Day surgery (SDC) | payer OTHER, MEDICARE ==
[~2022-03-11] VITALS: Ht 175.3 cm; Wt 9.2 kg
[2022-03-11] VITALS (9 sets, daily range): BP systolic 119–141; BP diastolic 49–75
[~2022-03-11 07:05] MED LIST changes: +LIDOcaine 1% 30ml preserv. free vial SQ STA
[2022-03-11] MEDS: albumin 25% 100mL bottle x 1 IV PRN ×2 (08:22→08:59)
== END 2022-03-11 09:55 | disposition home or self-care (01) ==
LOC: SSTAY O 07:05
PROVIDERS: ATTEND Radiology Diagnostic Radiology
DX: R18.8 Other ascites (principal); K74.60 Unspecified cirrhosis of liver; J44.9 Chronic obstructive pulmonary disease, unspecified; E11.22 Type 2 diabetes mellitus with diabetic chronic kidney disease; N18.4 Chronic kidney disease, stage 4 (severe); E66.01 Morbid (severe) obesity due to excess calories; Z68.32 Body mass index [BMI] 32.0-32.9, adult; K72.90 Hepatic failure, unspecified without coma; Z95.2 Presence of prosthetic heart valve; Z95.0 Presence of cardiac pacemaker; F17.290 Nicotine dependence, other tobacco product, uncomplicated; Z72.89 Other problems related to lifestyle; Z79.899 Other long term (current) drug therapy
CPT/HCPCS: 49083; 82948; J3490; P9047; A6449

== ENCOUNTER 2022-03-18 08:31 | Day surgery (SDC) | payer OTHER ==
[2022-03-18] VITALS (11 sets, daily range): BP systolic 111–140; BP diastolic 48–85
[~2022-03-18] VITALS: Ht 175.3 cm; Wt 98.9 kg
[~2022-03-18 08:31] MED LIST changes: -LIDOcaine 1% 30ml preserv. free vial SQ STA
[2022-03-18] MEDS ORDERED: LIDOcaine 1% 30ml preserv. free vial SQ STA (08:38)
[2022-03-18] MEDS: albumin 25% 100mL bottle x 1 IV PRN ×2 (09:10→09:55)
== END 2022-03-18 11:10 | disposition home or self-care (01) ==
LOC: SSTAY O 08:31
PROVIDERS: ATTEND Radiology Vascular & Interventional Radiology
DX: R18.8 Other ascites (principal); K74.60 Unspecified cirrhosis of liver; J44.9 Chronic obstructive pulmonary disease, unspecified; E11.22 Type 2 diabetes mellitus with diabetic chronic kidney disease; N18.4 Chronic kidney disease, stage 4 (severe); K72.90 Hepatic failure, unspecified without coma; E66.01 Morbid (severe) obesity due to excess calories; Z68.32 Body mass index [BMI] 32.0-32.9, adult; Z95.2 Presence of prosthetic heart valve; Z95.0 Presence of cardiac pacemaker; F17.290 Nicotine dependence, other tobacco product, uncomplicated; Z72.89 Other problems related to lifestyle; Z79.899 Other long term (current) drug therapy; Z79.4 Long term (current) use of insulin
CPT/HCPCS: 49083; 82948; J3490; P9047; A6258; A6449

== ENCOUNTER 2022-03-25 08:30 | Day surgery (SDC) | payer OTHER ==
[2022-03-25] VITALS (8 sets, daily range): BP systolic 118–154; BP diastolic 57–72
[~2022-03-25] VITALS: Ht 175.3 cm; Wt 97.7 kg
[2022-03-25] MEDS ORDERED: LIDOcaine 1% 30ml preserv. free vial SQ STA (09:08)
[2022-03-25] MEDS: albumin 25% 100mL bottle x 1 IV PRN ×2 (10:07→10:46)
== END 2022-03-25 11:50 | disposition home or self-care (01) ==
LOC: SSTAY O 08:30
PROVIDERS: ATTEND Radiology Diagnostic Radiology
DX: R18.8 Other ascites (principal); J44.9 Chronic obstructive pulmonary disease, unspecified; E11.22 Type 2 diabetes mellitus with diabetic chronic kidney disease; N18.4 Chronic kidney disease, stage 4 (severe); E66.01 Morbid (severe) obesity due to excess calories; Z68.31 Body mass index [BMI] 31.0-31.9, adult; K72.90 Hepatic failure, unspecified without coma; Z95.2 Presence of prosthetic heart valve; Z95.0 Presence of cardiac pacemaker; Z72.89 Other problems related to lifestyle; F17.290 Nicotine dependence, other tobacco product, uncomplicated
CPT/HCPCS: 49083; J3490; P9047; A6258

== ENCOUNTER 2022-04-01 07:04 | Day surgery (SDC) | payer OTHER ==
[~2022-04-01] VITALS: Ht 175.3 cm; Wt 101.7 kg
[2022-04-01] VITALS (9 sets, daily range): BP systolic 109–144; BP diastolic 52–86
[2022-04-01] MEDS ORDERED: LIDOcaine 1% 30ml preserv. free vial SQ ONE (08:00)
[2022-04-01] MEDS: albumin 25% 100mL bottle x 1 IV PRN ×2 (08:55→10:11)
[2022-04-01] MEDS ORDERED: albuterol 2.5 MG/3 ML nebule NEB PRN (09:25)
== END 2022-04-01 11:25 | disposition home or self-care (01) ==
LOC: SSTAY O 07:04
PROVIDERS: ATTEND Radiology Diagnostic Radiology
DX: R18.8 Other ascites (principal); K74.60 Unspecified cirrhosis of liver; J44.9 Chronic obstructive pulmonary disease, unspecified; E11.22 Type 2 diabetes mellitus with diabetic chronic kidney disease; N18.4 Chronic kidney disease, stage 4 (severe); E66.01 Morbid (severe) obesity due to excess calories; Z68.33 Body mass index [BMI] 33.0-33.9, adult; K72.90 Hepatic failure, unspecified without coma; Z95.2 Presence of prosthetic heart valve; Z95.0 Presence of cardiac pacemaker; F17.290 Nicotine dependence, other tobacco product, uncomplicated; Z72.89 Other problems related to lifestyle; Z79.84 Long term (current) use of oral hypoglycemic drugs; Z79.82 Long term (current) use of aspirin; Z79.899 Other long term (current) drug therapy
CPT/HCPCS: 49083; 82948; 94640; J3490; P9047; A6258; A6449

== ENCOUNTER 2022-04-08 08:35 | Day surgery (SDC) | payer OTHER ==
[~2022-04-08] VITALS: Ht 175.3 cm; Wt 104.1 kg
[2022-04-08] VITALS (14 sets, daily range): BP systolic 100–153; BP diastolic 46–79
[2022-04-08] MEDS: albumin 25% 100mL bottle x 1 IV PRN ×3 (09:20→11:07)
[2022-04-08] MEDS ORDERED: albuterol 2.5 MG/3 ML nebule NEB ONE (10:00)
== END 2022-04-08 13:06 | disposition home or self-care (01) ==
LOC: SSTAY O 08:35
PROVIDERS: ATTEND Radiology Diagnostic Radiology
DX: R18.8 Other ascites (principal); R14.0 Abdominal distension (gaseous); K74.60 Unspecified cirrhosis of liver; J44.9 Chronic obstructive pulmonary disease, unspecified; K72.90 Hepatic failure, unspecified without coma; E11.22 Type 2 diabetes mellitus with diabetic chronic kidney disease; N18.4 Chronic kidney disease, stage 4 (severe); E66.01 Morbid (severe) obesity due to excess calories; Z68.33 Body mass index [BMI] 33.0-33.9, adult; Z95.2 Presence of prosthetic heart valve; Z95.0 Presence of cardiac pacemaker; F17.290 Nicotine dependence, other tobacco product, uncomplicated; Z72.89 Other problems related to lifestyle; Z79.899 Other long term (current) drug therapy
CPT/HCPCS: 49083; 82948; 94640; 94760; P9047; A6258

== ENCOUNTER 2022-04-16 08:01 | Day surgery (SDC) | payer OTHER ==
--- NOTE | 2022-04-08 09:27 | NUR ---
charted on wrong date Addendum: 04/08/22 at 0682 by Caitlyn Gong RN Amended: Links added.
[2022-04-16] VITALS (8 sets, daily range): BP systolic 116–149; BP diastolic 50–74
[~2022-04-16] VITALS: Ht 175.3 cm; Wt 104.1 kg
[2022-04-16] MEDS ORDERED: LIDOcaine 1% 30ml preserv. free vial SQ ONE (08:10)
[2022-04-16] MEDS ORDERED: MIDAZolam 1mg/ml 10ml vial IV ONE (08:20)
--- NOTE | 2022-04-16 08:45 | NUR ---
Upon [facility] check, glucose resulted as 65. Rechecked and received second result of 65. Notified Tom ESTRADA in person and he states to give orange juice and a complex carb and recheck. Also would like patient to have two or three results that are within normal limits before discharge.
[2022-04-16] MEDS: albumin 25% 100mL bottle x 1 IV PRN ×3 (08:46→10:24)
== END 2022-04-16 11:20 | disposition home or self-care (01) ==
LOC: SSTAY O 08:01
PROVIDERS: ATTEND Radiology Diagnostic Radiology
DX: R18.8 Other ascites (principal); K74.60 Unspecified cirrhosis of liver; J44.9 Chronic obstructive pulmonary disease, unspecified; E11.22 Type 2 diabetes mellitus with diabetic chronic kidney disease; N18.4 Chronic kidney disease, stage 4 (severe); K72.90 Hepatic failure, unspecified without coma; E66.01 Morbid (severe) obesity due to excess calories; Z68.33 Body mass index [BMI] 33.0-33.9, adult; Z95.2 Presence of prosthetic heart valve; Z95.0 Presence of cardiac pacemaker; Z72.89 Other problems related to lifestyle; F17.290 Nicotine dependence, other tobacco product, uncomplicated; Z79.899 Other long term (current) drug therapy
CPT/HCPCS: 49083; 82948; J3490; P9047; A6258; A6402

== ENCOUNTER 2022-04-22 08:11 | Day surgery (SDC) | payer OTHER, MEDICARE ==
[~2022-04-22] VITALS: Ht 175.3 cm; Wt 101.8 kg
[2022-04-22] VITALS (13 sets, daily range): BP systolic 100–148; BP diastolic 37–75
[2022-04-22] MEDS ORDERED: LIDOcaine 1% 30ml preserv. free vial SQ STA (08:26)
[2022-04-22] MEDS ORDERED: albuterol 2.5 MG/3 ML nebule NEB ONE (08:45)
[2022-04-22] MEDS: albumin 25% 100mL bottle x 1 IV PRN ×2 (09:03→09:08)
== END 2022-04-22 11:15 | disposition home or self-care (01) ==
LOC: SSTAY O 08:11
PROVIDERS: ATTEND Radiology Diagnostic Radiology
DX: R18.8 Other ascites (principal); R14.0 Abdominal distension (gaseous); J44.9 Chronic obstructive pulmonary disease, unspecified; K72.90 Hepatic failure, unspecified without coma; E66.01 Morbid (severe) obesity due to excess calories; Z68.33 Body mass index [BMI] 33.0-33.9, adult; E11.22 Type 2 diabetes mellitus with diabetic chronic kidney disease; I12.9 Hypertensive chronic kidney disease with stage 1 through stage 4 chronic kidney disease, or unspecified chronic kidney disease; N18.4 Chronic kidney disease, stage 4 (severe); Z95.2 Presence of prosthetic heart valve; Z95.0 Presence of cardiac pacemaker; Z72.89 Other problems related to lifestyle; F17.290 Nicotine dependence, other tobacco product, uncomplicated; Z79.4 Long term (current) use of insulin; Z79.899 Other long term (current) drug therapy; Z79.82 Long term (current) use of aspirin
CPT/HCPCS: 49083; 82948; 94640; 94760; J3490; P9047; A6258; A6449

== ENCOUNTER 2022-04-29 07:35 | Day surgery (SDC) | payer OTHER, MEDICARE ==
[2022-04-29] VITALS (8 sets, daily range): BP systolic 109–149; BP diastolic 46–70
[~2022-04-29] VITALS: Ht 175.3 cm; Wt 101.7 kg
[2022-04-29] MEDS ORDERED: LIDOcaine 1% 30ml preserv. free vial SQ STA (07:57)
[2022-04-29] MEDS: albumin 25% 100mL bottle x 1 IV PRN ×2 (09:01→09:02)
== END 2022-04-29 10:40 | disposition home or self-care (01) ==
LOC: SSTAY O 07:35
PROVIDERS: ATTEND Radiology Diagnostic Radiology
DX: R18.8 Other ascites (principal); R14.0 Abdominal distension (gaseous); K74.60 Unspecified cirrhosis of liver; J44.9 Chronic obstructive pulmonary disease, unspecified; K72.90 Hepatic failure, unspecified without coma; E11.22 Type 2 diabetes mellitus with diabetic chronic kidney disease; N18.4 Chronic kidney disease, stage 4 (severe); E66.01 Morbid (severe) obesity due to excess calories; Z68.33 Body mass index [BMI] 33.0-33.9, adult; Z95.0 Presence of cardiac pacemaker; Z95.2 Presence of prosthetic heart valve; F17.290 Nicotine dependence, other tobacco product, uncomplicated; Z72.89 Other problems related to lifestyle; Z79.899 Other long term (current) drug therapy; Z79.82 Long term (current) use of aspirin; Z79.84 Long term (current) use of oral hypoglycemic drugs
CPT/HCPCS: 49083; 82948; J3490; P9047; A6258; A6449

== ENCOUNTER 2022-05-06 07:29 | Day surgery (SDC) | payer OTHER ==
[~2022-05-06] VITALS: Ht 175.3 cm; Wt 97.6 kg
[2022-05-06 07:12] VITALS: BP 147/77
[~2022-05-06 07:29] MED LIST changes: -INSU100I25 SQ; +INSU100I27 SQ; +LIDOcaine 1% 30ml preserv. free vial SQ STA
[2022-05-06] MEDS ORDERED: LIDOcaine 1% 30ml preserv. free vial SQ ONE (08:05)
[2022-05-06 08:38] VITALS: BP 131/69
[2022-05-06] MEDS: albumin 25% 100mL bottle x 1 IV PRN ×2 (08:46→09:31)
[2022-05-06 08:53] VITALS: BP 135/64
[2022-05-06 09:08] VITALS: BP 133/66
[2022-05-06 09:23] VITALS: BP 128/57
[2022-05-06 09:38] VITALS: BP 132/56
== END 2022-05-06 10:30 | disposition home or self-care (01) ==
LOC: SSTAY O 07:29
PROVIDERS: ATTEND Radiology Vascular & Interventional Radiology
DX: R18.8 Other ascites (principal); R14.0 Abdominal distension (gaseous); J44.9 Chronic obstructive pulmonary disease, unspecified; E11.22 Type 2 diabetes mellitus with diabetic chronic kidney disease; N18.4 Chronic kidney disease, stage 4 (severe); E66.01 Morbid (severe) obesity due to excess calories; Z68.31 Body mass index [BMI] 31.0-31.9, adult; K72.90 Hepatic failure, unspecified without coma; Z95.2 Presence of prosthetic heart valve; Z95.0 Presence of cardiac pacemaker; F17.290 Nicotine dependence, other tobacco product, uncomplicated; Z72.89 Other problems related to lifestyle; Z79.4 Long term (current) use of insulin; Z79.899 Other long term (current) drug therapy; Z79.82 Long term (current) use of aspirin
CPT/HCPCS: 49083; 82948; P9047; A6258

== ENCOUNTER 2022-05-13 07:33 | Day surgery (SDC) | payer OTHER, MEDICARE ==
[~2022-05-13] VITALS: Ht 172.7 cm; Wt 95.4 kg
[2022-05-13] VITALS (8 sets, daily range): BP systolic 104–153; BP diastolic 48–69
[~2022-05-13 07:33] MED LIST changes: -LIDOcaine 1% 30ml preserv. free vial SQ STA
[2022-05-13] MEDS ORDERED: MIDAZolam 1mg/ml 10ml vial IV ONE (08:00)
[2022-05-13] MEDS ORDERED: LIDOcaine 1% 30ml preserv. free vial SQ STA (08:01)
[2022-05-13] MEDS: albumin 25% 100mL bottle x 1 IV PRN (08:04)
== END 2022-05-13 10:50 | disposition home or self-care (01) ==
LOC: SSTAY O 07:33
PROVIDERS: ATTEND Radiology Diagnostic Radiology
DX: R18.8 Other ascites (principal); K74.60 Unspecified cirrhosis of liver; R14.0 Abdominal distension (gaseous); E11.22 Type 2 diabetes mellitus with diabetic chronic kidney disease; N18.9 Chronic kidney disease, unspecified; J44.9 Chronic obstructive pulmonary disease, unspecified; K72.90 Hepatic failure, unspecified without coma; E66.01 Morbid (severe) obesity due to excess calories; Z68.32 Body mass index [BMI] 32.0-32.9, adult; Z95.2 Presence of prosthetic heart valve; Z95.0 Presence of cardiac pacemaker; F17.290 Nicotine dependence, other tobacco product, uncomplicated; Z72.89 Other problems related to lifestyle; Z79.82 Long term (current) use of aspirin; Z79.899 Other long term (current) drug therapy
CPT/HCPCS: 49083; 82948; P9047; A6258

== ENCOUNTER 2022-05-17 12:02 | Day surgery (SDC) | payer OTHER, MEDICARE ==
[2022-05-17] VITALS (7 sets, daily range): BP systolic 112–141; BP diastolic 47–83
[~2022-05-17] VITALS: Ht 175.3 cm; Wt 93.6 kg
[2022-05-17] MEDS ORDERED: fentaNYL/PF 50MCG/1 ML 2ML syringe ONE (14:19)
[2022-05-17] MEDS ORDERED: LIDOcaine 1% 30ml preserv. free vial ONE (14:19)
[2022-05-17] MEDS ORDERED: midazolam 1 mg/ML 2ml injection ONE (14:19)
[2022-05-17] MEDS ORDERED: albumin (human) 25% 100 ML IV solution IV ONE (14:55)
== END 2022-05-17 16:55 | disposition home or self-care (01) ==
LOC: SSTAY O 12:02
PROVIDERS: ATTEND Radiology Vascular & Interventional Radiology
DX: R18.8 Other ascites (principal); K74.60 Unspecified cirrhosis of liver; E11.22 Type 2 diabetes mellitus with diabetic chronic kidney disease; N18.4 Chronic kidney disease, stage 4 (severe); J44.9 Chronic obstructive pulmonary disease, unspecified; K72.90 Hepatic failure, unspecified without coma; E66.01 Morbid (severe) obesity due to excess calories; Z68.30 Body mass index [BMI] 30.0-30.9, adult; Z95.2 Presence of prosthetic heart valve; Z95.0 Presence of cardiac pacemaker; F17.290 Nicotine dependence, other tobacco product, uncomplicated; Z72.89 Other problems related to lifestyle; Z79.899 Other long term (current) drug therapy; Z79.4 Long term (current) use of insulin; Z79.82 Long term (current) use of aspirin
CPT/HCPCS: 49418; 82948; 99152; 99153; J2250; J3010; J3490; J7030; P9047; 75989